=== PATIENT | female | born 1930 | race Caucasian/White ===

== ENCOUNTER 2017-03-12 07:47 | Observation (INO) | payer MEDICARE ==
[~2017-03-12] VITALS: Ht 157.5 cm; Wt 71.0 kg
[~2017-03-12 07:47] MED LIST: FLUO20TA20 PO; FURO20TA PO; GABA300C3 PO; LEVO50TA4 PO; LORTA5 PO; MEVA40TA PO; OMEP20TA39 PO; REFR0.5D4 EACH EYE; TEMA30CA PO; VITA100018 PO
[2017-03-12 07:57] VITALS: BP 232/103; PULSE 84; RESP 20; TEMP 98.1; O2SAT 99
--- NOTE | 2017-03-12 08:11 | PD ---
HPI Chief Complaint: Abdominal Pain Time Seen by Provider: 08:11 Travel History International Travel<30 days: No Contact w/Intl Traveler<30days: No Traveled to known affect area: No History of Present Illness HPI 86-year-old female came to the emergency room brought by EMS for abdominal pain and diarrhea. Patient says this has been going on for past 3 days. The stool is mostly watery. But currently her main complaint is abdominal pain and she seemed very uncomfortable. She pointed to her entire abdomen when asked for the location of the pain. Ideation and no aggravating or relieving factors currently. Patient was hypertensive upon arrival. No history of vomiting. She said she has been nauseous though. Patient has history of peptic ulcer disease and intestinal polyps. She received blood transfusion couple years ago. [facility] Past Medical History Narrative Medical List of her past medical, surgical, social and family history is reviewed from the nursing note. 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) Psychiatric: No Reproductive: No Respiratory: No Thyroid Disease: Yes (HYPO) Tetanus Vaccination: > 5 Years Menopausal: Yes Past Surgical History Abdominal Surgery: Yes (APPY) AICD: No Appendectomy: Yes Body Medical Devices: 4 SCREW & PLATE IN BACK Cardiac Surgery: No Ear Surgery: Yes (PARTIAL BILAT MASTOID BONES REMOVED) 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 Reported Meds & Prescriptions Reported Meds & Active Scripts Active Reported Refresh Tears (Carboxymethylcellulose Sodium) 0.5 % Fatoumata 1 Drop EACH EYE DAILY Levothyroxine 50 mcg (Levothyroxine Sodium) 50 Mcg Tab 50 Mcg PO DAILY Gabapentin 300 Mg Cap 400 Mg PO BID Hydrocodone/Acetaminophen 5 mg/325 mg 1 Tab 1 Tab PO TID PRN Temazepam 30 Mg Cap 30 Mg PO HS Vitamin D (Cholecalciferol) 1,000 Unit Tab 1,000 Unit PO DAILY Furosemide 20 Mg Tab 20 Mg PO DAILY PRN Fluoxetine Hcl (Fluoxetine HCl) 20 Mg Tab 20 Mg PO DAILY Lovastatin 40 Mg Tab 40 Mg PO DAILY Narrative Medication List of her home medications reviewed from the nursing note. Review of Systems Except as stated in HPI: all other systems reviewed are Neg Physical Exam Narrative GENERAL: Awake, alert, elderly, moderate distress SKIN: Focused skin assessment warm/dry. Pale, multiple large ecchymosis on her legs HEAD: Atraumatic. Normocephalic. EYES: Pupils equal and round. No scleral icterus. No injection or drainage. Pallor ENT: No nasal bleeding or discharge. Mucous membranes pink and moist. NECK: Trachea midline. No JVD. CARDIOVASCULAR: Regular rate and rhythm. No murmur appreciated. RESPIRATORY: No accessory muscle use. Clear to auscultation. Breath sounds equal bilaterally. GASTROINTESTINAL: Abdomen soft, non-tender, distended. Hepatic and splenic margins not palpable. MUSCULOSKELETAL: No obvious deformities. No clubbing. No cyanosis. No edema. NEUROLOGICAL: Awake and alert. No obvious cranial nerve deficits. Motor grossly within normal limits. Normal speech. PSYCHIATRIC: Appropriate mood and affect; insight and judgment normal. Data Data Last Documented VS Vital Signs Date Time Temp Pulse Resp B/P (MAP) Pulse Ox O2 Delivery O2 Flow Rate FiO2 03/12/17 08:54 99 Room Air 03/12/17 08:54 87 20 03/12/17 07:57 98.1 Orders Orders Complete Blood Count With Diff (03/12/17 08:22) Comprehensive Metabolic Panel (03/12/17 08:22) Prothrombin Time / Inr (Pt) (03/12/17 08:22) Urinalysis - C+S If Indicated (03/12/17 08:22) Ct Abd/Pel W/O Iv Contrast (03/12/17 08:22) Iv Access Insert/Monitor (03/12/17 08:22) Ecg Monitoring (03/12/17 08:22) Oximetry (03/12/17 08:22) Morphine Inj (Morphine Inj) (03/12/17 08:30) Ondansetron Inj (Zofran Inj) (03/12/17 08:30) Sodium Chlor 0.9% 1000 Ml Inj (Ns 1000 M (03/12/17 08:22) Sodium Chloride 0.9% Flush (Ns Flush) (03/12/17 08:30) Type And Screen (03/12/17 09:43) Sodium Chloride 0.9... W/Pantoprazole In (03/12/17 10:43) Sodium Chloride 0.9... W/Pantoprazole In (03/12/17 10:43) Admit Order (Ed Use Only) (03/12/17 10:17) Labs Laboratory Tests Test 03/12/17 08:55 03/12/17 09:30 White Blood Count 7.9 TH/MM3 Red Blood Count 3.08 MIL/MM3 Hemoglobin 8.0 GM/DL Hematocrit 24.7 % Mean Corpuscular Volume 80.2 FL Mean Corpuscular Hemoglobin 25.9 PG Mean Corpuscular Hemoglobin Concent 32.3 % Red Cell Distribution Width 19.0 % Platelet Count 222 TH/MM3 Mean Platelet Volume 8.3 FL Neutrophils (%) (Auto) 71.0 % Lymphocytes (%) (Auto) 20.7 % Monocytes (%) (Auto) 6.4 % Eosinophils (%) (Auto) 0.8 % Basophils (%) (Auto) 1.1 % Neutrophils # (Auto) 5.6 TH/MM3 Lymphocytes # (Auto) 1.6 TH/MM3 Monocytes # (Auto) 0.5 TH/MM3 Eosinophils # (Auto) 0.1 TH/MM3 Basophils # (Auto) 0.1 TH/MM3 CBC Comment AUTO DIFF Differential Comment AUTO DIFF CONFIRMED Platelet Estimate NORMAL Platelet Morphology Comment NORMAL Ovalocytes 1+ Prothrombin Time 10.6 SEC Prothromb Time International Ratio 1.0 RATIO Blood Urea Nitrogen 14 MG/DL Creatinine 0.66 MG/DL Random Glucose 103 MG/DL Total Protein 6.5 GM/DL Albumin 3.4 GM/DL Calcium Level 8.7 MG/DL Alkaline Phosphatase 67 U/L Aspartate Amino Transf (AST/SGOT) 27 U/L Alanine Aminotransferase (ALT/SGPT) 23 U/L Total Bilirubin 0.5 MG/DL Sodium Level 131 MEQ/L Potassium Level 4.2 MEQ/L Chloride Level 99 MEQ/L Carbon Dioxide Level 23.1 MEQ/L Anion Gap 9 MEQ/L Estimat Glomerular Filtration Rate 85 ML/MIN Urine Color LIGHT-YELLOW Urine Turbidity CLEAR Urine pH 8.0 Urine Specific [place] 1.012 Urine Protein NEG mg/dL Urine Glucose (UA) NEG mg/dL Urine Ketones 10 mg/dL Urine Occult Blood NEG Urine Nitrite NEG Urine Bilirubin NEG Urine Urobilinogen LESS THAN 2.0 MG/DL Urine Leukocyte Esterase NEG Urine RBC 1 /hpf Urine WBC 1 /hpf Urine Squamous Epithelial Cells <1 /hpf Microscopic Urinalysis Comment CULT NOT INDICATED MDM Medical Decision Making Medical Screen Exam Complete: Yes Emergency Medical Condition: Yes Medical Record Reviewed: Yes Interpretation(s) Twelve-lead EKG was reviewed by me. Normal sinus rhythm, left axis deviation, nonspecific ST-T wave changes. Heart rate of 79 bpm. Differential Diagnosis Acute diverticulitis, acute gastroenteritis, acute colitis, electrolyte abnormality, dehydration Narrative Course 9:47 AM blood test results are back. Patient is anemic and slightly hyponatremic. I did a stool Hemoccult which was positive. Patient is being started on Protonix bolus and drip. Hemoglobin was not low enough for transfusion but I would like to admit her for GI consultation and monitoring for the hemoglobin. Patient is okay with that plan. CT scan was negative for anything acute. Critical Care Narrative Aggregate critical care time was 30 minutes. Time to perform other separately billable procedures was not included in the critical care time. My time did not include minutes spent treating any other patients simultaneously or on activities that did not directly contribute to the patient's treatment. The services I provided to this patient were to treat and/or prevent clinically significant deterioration that could result in: GI bleed, Protonix bolus and drip I provided critical care services requiring my management, as noted below: Chart data review, documentation time, medication orders and management, vital sign assessments/reviewing monitor data, ordering and reviewing lab tests, ordering and interpreting/reviewing x-rays and diagnostic studies, care of the patient and discussion of the patient with the admitting physicians. Procedures EKG Prior to Arrival: No HemaPrompt Point of Care Internal Pos. & Neg. Controls: Passed Fecal Specimen Occult Blood: Positive Diagnosis Primary Impression: Abdominal pain Qualified Codes: R10.9 - Unspecified abdominal pain Additional Impressions: GI bleed Qualified Codes: K92.2 - Gastrointestinal hemorrhage, unspecified Diarrhea Qualified Codes: R19.7 - Diarrhea, unspecified Admitting Information Admitting Physician Requests: Admit Scripts Omeprazole Magnesium (Prilosec) 20 Mg Tab 20 MG PO BID for gastritis for 60 Days, #2400 MG 0 Refills Prov: Enrrique Erwin DO 03/15/17 Ferrous Sulfate (Ferosul) 325 Mg (65 Mg Iron) Tablet 325 MG PO BID for anemia for 30 Days, MG Prov: Enrrique Erwin DO 03/15/17 Mauricio Castro MD Mar 12, 2017 08:11
[2017-03-12] MEDS ORDERED: SODIUM CHLOR 0.9% 1000 ML INJ 1,000 ML IV SCH (08:22)
[2017-03-12] MEDS ORDERED: MORPHINE SULFATE 4 MG/ML INJ IV PUSH ONE (08:30)
[2017-03-12] MEDS ORDERED: SODIUM CHLORIDE 0.9% FLUSH 10 ML FLUSH IV FLUSH PRN (08:30)
[2017-03-12] MEDS ORDERED: ONDANSETRON HCL 4 MG/2 ML VIAL IVP ONE (08:30)
[2017-03-12 08:54] VITALS: BP 177/132; PULSE 87; RESP 20; O2SAT 100; O2SAT 99
[2017-03-12 09:06] LABS: AUTOMATED NEUTROPHIL # 5.6 TH/MM3 (1.8-7.7); BASOPHIL # 0.1 TH/MM3 (0-0.2); BASOPHIL % 1.1 % (0.0-2.0); EOSINOPHIL # 0.1 TH/MM3 (0-0.4); EOSINOPHIL % 0.8 % (0.0-4.0); HEMATOCRIT 24.7 % (35.0-46.0); LYMPH % 20.7 % (9.0-44.0); LYMPHOCYTE # 1.6 TH/MM3 (1.0-4.8); MEAN CELL VOLUME 80.2 FL (80.0-100.0); MEAN CORPUSCULAR HEMOGLOBIN 25.9 PG (27.0-34.0); MEAN CORPUSCULAR HGB CONC 32.3 % (32.0-36.0); MONO % 6.4 % (0.0-8.0); PLATELET COUNT 222 TH/MM3 (150-450); RED BLOOD COUNT 3.08 MIL/MM3 (4.00-5.30); WHITE BLOOD COUNT 7.9 TH/MM3 (4.0-11.0)
--- NOTE | 2017-03-12 09:09 | RADRPT ---
EXAM DATE/TIME: 03/12/2017 08:40 [place] COMPARISON: No previous studies available for comparison. INDICATIONS : Lower abdomen pain and diarrhea for 5 days ORAL CONTRAST: No oral contrast ingested. RADIATION DOSE: 12.69 CTDIvol (mGy) MEDICAL HISTORY : None SURGICAL HISTORY : Appendectomy. Hysterectomy. ENCOUNTER: Initial ACUITY: 1 day PAIN SCALE: 3/10 LOCATION: lower quadrant TECHNIQUE: Volumetric scanning of the abdomen and pelvis was performed. Using automated exposure control and ad justment of the mA and/or kV according to patient size, radiation dose was kept as low as reasonably achievable to obtain optimal diagnostic quality images. DICOM format image data is available electro nically for review and comparison. FINDINGS: LOWER LUNGS: Minimal by basilar atelectasis LIVER: Homogeneous density without lesion. There is no dilation of the biliary tree. No calcified gallston es. SPLEEN: Normal size without lesion. PANCREAS: Within normal limits. KIDNEYS: Symmetrical in size without evidence for radiopaque renal calculi or hydronephrosis. No significant c ontour deforming abnormality. ADRENAL GLANDS: Within normal limits. VASCULAR: Moderate atherosclerotic calcifications of the infrarenal abdominal aorta and proximal common iliac a rteries. No significant aneurysm. BOWEL/MESENTERY: Moderate hiatal hernia. Bowel appears grossly unremarkable without evidence for significant bowel wal l thickening or obstruction. No pneumatosis or free air. No drainable fluid collection or free fluid. ABDOMINAL WALL: Within normal limits. RETROPERITONEUM: There is no lymphadenopathy. BLADDER: No wall thickening or mass. REPRODUCTIVE: Within normal limits. INGUINAL: There is no lymphadenopathy or hernia. MUSCULOSKELETAL: Postsurgical features of beto and screw fixation at L4-5. No abnormal lytic or blastic bony lesions. CONCLUSION: 1. No acute findings to explain patient's symptoms. Specifically, no evidence for bowel obstruction o r gross bowel wall thickening. 2. Ancillary findings include moderate hiatal hernia and postsurgical features in the lower lumbar sp ine. Yan Flores MD on March 12, 2017 at 9:00 Board Certified Radiologist. This report was verified electronically.
[2017-03-12 09:10] LABS: HEMO FLAGS AUTO DIFF
[2017-03-12 09:16] LABS: PROTHROMBIN TIME - PATIENT 10.6 SEC (9.8-11.6)
[2017-03-12 09:27] LABS: ALT (GPT) 23 U/L (10-53); ANION GAP 9 MEQ/L (5-15); AST (GOT) 27 U/L (15-37); BICARBONATE 23.1 MEQ/L (21.0-32.0); BLOOD UREA NITROGEN 14 MG/DL (7-18); CHLORIDE 99 MEQ/L (98-107); GLOMERULAR FILTRATION RATE 85 ML/MIN (>89); POTASSIUM 4.2 MEQ/L (3.5-5.1); SODIUM (NA) 131 MEQ/L (136-145)
[2017-03-12 09:30] LABS: ALKALINE PHOSPHATASE 67 U/L (45-117); TOTAL BILIRUBIN ADULT 0.5 MG/DL (0.2-1.0)
[2017-03-12 09:51] LABS: BLOOD, URINE NEG (NEG); COMMENT (UR) CULT NOT INDICATED; CULTURE IF INDICATED CULT NOT INDICATED; GLUCOSE,URINE NEG (NEG); KETONE, URINE 10 mg/dL (NEG); NITRITE,URINE NEG (NEG); SQUAMOUS EPITHELIAL CELL URINE <1 /hpf (0-5); URINE COLOR LIGHT-YELLOW (YELLW/STRAW)
[2017-03-12 09:54] LABS: OVALOCYTES 1+ (NORMAL); PLATELET ESTIMATE SMEAR NORMAL (NORMAL); PLATELET MORPHOLOGY NORMAL (NORMAL); SCAN/DIFF AUTO DIFF CONFIRMED
[2017-03-12] MEDS ORDERED: PANTOPRAZOLE INJ 80 MG in SODIUM CHLORIDE 0.9% INJ 35 ML IV ONE (10:43)
[2017-03-12] MEDS: PANTOPRAZOLE INJ 80 MG in SODIUM CHLORIDE 0.9% INJ 100 ML IV SCH ×2 (10:43→22:26)
[2017-03-12] MEDS ORDERED: ACETAMINOPHEN 325 MG TAB PO PRN (11:00)
[2017-03-12] MEDS ORDERED: ONDANSETRON HCL 4 MG/2 ML VIAL IV PRN (11:00)
[2017-03-12] MEDS ORDERED: diphenhydrAMINE HCL 25 MG CAP PO ONE (11:15)
[2017-03-12] MEDS ORDERED: diphenhydrAMINE HCL 25 MG CAP PO PRN (11:15)
[2017-03-12] MEDS: SODIUM CHLOR 0.9% 1000 ML INJ 1,000 ML IV SCH ×2 (11:15→22:26)
[2017-03-12] MEDS ORDERED: ACETAMINOPHEN/HYDROcodone 325 MG/5 MG TAB PO PRN (11:15)
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
[2017-03-12] MEDS ORDERED: cloNIDine HCL 0.1 MG TAB PO PRN (12:00)
[2017-03-12 13:23] VITALS: BP 178/78; PULSE 82
[2017-03-12] MEDS ORDERED: PROPOFOL 200 MG/20 ML AMP IV ONE (14:20)
--- NOTE | 2017-03-12 15:25 | PD.CONS ---
HPI History of Present Illness This is a 86 year old female with hx MARILU, PUD, GERD who presented with complaint of diarrhea, onset 3 d ago. She took an immodium for it yesterday and began experiencing nausea and umblical pain. At this time she denies diarrhea, none since yesterday, and denies pain. She did take abx for cellulitis and finished that course 2 weeks ago. Denies recent travel, change in diet, change in meds, sick contacts, black tarry stool, weight loss, fevers. She cannot say if she has had blood in her stool b/c the power had been out, but prior she did not notice blood and denies hx GIB. Shewas found to be anemic with hgb 8.0 and heme pos stool on admission. She does take Aleve 3 per day 3 times per week. She had egd and colonoscopy with Chelsy 11/2014 and findings were esophageal stricture, esophagitis, hiatal hernia, duodenal ulcers , diverticulosis, hemorrhoids. Takes omeprazole for reflux. No bloodthinners (Tamika Omer) PFSH Past Medical History HLD GERD ulcers duodenum Past Surgical History cervical fusion back surgery x 3 appendectomy T&A hysterectomy (Tamika Omer) Coded Allergies: epinephrine (Unverified Adverse Reaction, Intermediate, 03/12/17) Family History none Social History occasional ETOH, no tobacco or illicit drug use (Tamika Omer) Review of Systems Constitutional: DENIES: Fever Eyes: DENIES: Blurred vision Ears, nose, mouth, throat: DENIES: Hearing loss Respiratory: DENIES: Wheezing Cardiovascular: DENIES: Chest pain Gastrointestinal: COMPLAINS OF: Abdominal pain, Diarrhea, DENIES: Black stools , Bloody stools, Constipation, Nausea, Vomiting, Hematemesis Genitourinary: DENIES: Hematuria Musculoskeletal: DENIES: Joint Swelling Integumentary: DENIES: Rash Neurologic: DENIES: Abnormal gait Psychiatric: DENIES: Confusion (Tamika Omer) GI Exam Vitals I&O Vital Signs Date Time Temp Pulse Resp B/P (MAP) Pulse Ox O2 Delivery O2 Flow Rate FiO2 03/12/17 13:23 82 178/78 (111) 03/12/17 08:54 99 Room Air 03/12/17 08:54 87 20 177/132 (147) 100 Room Air 03/12/17 07:57 98.1 84 20 232/103 (146) 99 I/O 03/11/17 03/11/17 03/11/17 03/12/17 03/12/17 03/12/17 07:00 15:00 23:00 07:00 15:00 23:00 Intake Total 1035 ml Balance 1035 ml Intake IV Total 1035 ml Laboratory Test 03/12/17 08:55 03/12/17 09:30 White Blood Count 7.9 TH/MM3 Red Blood Count 3.08 MIL/MM3 Hemoglobin 8.0 GM/DL Hematocrit 24.7 % Mean Corpuscular Volume 80.2 FL Mean Corpuscular Hemoglobin 25.9 PG Mean Corpuscular Hemoglobin Concent 32.3 % Red Cell Distribution Width 19.0 % Platelet Count 222 TH/MM3 Mean Platelet Volume 8.3 FL Neutrophils (%) (Auto) 71.0 % Lymphocytes (%) (Auto) 20.7 % Monocytes (%) (Auto) 6.4 % Eosinophils (%) (Auto) 0.8 % Basophils (%) (Auto) 1.1 % Neutrophils # (Auto) 5.6 TH/MM3 Lymphocytes # (Auto) 1.6 TH/MM3 Monocytes # (Auto) 0.5 TH/MM3 Eosinophils # (Auto) 0.1 TH/MM3 Basophils # (Auto) 0.1 TH/MM3 CBC Comment AUTO DIFF Differential Comment AUTO DIFF CONFIRMED Platelet Estimate NORMAL Platelet Morphology Comment NORMAL Ovalocytes 1+ Prothrombin Time 10.6 SEC Prothromb Time International Ratio 1.0 RATIO Blood Urea Nitrogen 14 MG/DL Creatinine 0.66 MG/DL Random Glucose 103 MG/DL Total Protein 6.5 GM/DL Albumin 3.4 GM/DL Calcium Level 8.7 MG/DL Alkaline Phosphatase 67 U/L Aspartate Amino Transf (AST/SGOT) 27 U/L Alanine Aminotransferase (ALT/SGPT) 23 U/L Total Bilirubin 0.5 MG/DL Sodium Level 131 MEQ/L Potassium Level 4.2 MEQ/L Chloride Level 99 MEQ/L Carbon Dioxide Level 23.1 MEQ/L Anion Gap 9 MEQ/L Estimat Glomerular Filtration Rate 85 ML/MIN Urine Color LIGHT-YELLOW Urine Turbidity CLEAR Urine pH 8.0 Urine Specific [place] 1.012 Urine Protein NEG mg/dL Urine Glucose (UA) NEG mg/dL Urine Ketones 10 mg/dL Urine Occult Blood NEG Urine Nitrite NEG Urine Bilirubin NEG Urine Urobilinogen LESS THAN 2.0 MG/DL Urine Leukocyte Esterase NEG Urine RBC 1 /hpf Urine WBC 1 /hpf Urine Squamous Epithelial Cells <1 /hpf Microscopic Urinalysis Comment CULT NOT INDICATED Physical Examination HEENT: PERRL; normocephalic; atraumatic; no jaundice. CHEST: CTA CARDIAC: RRR ABDOMEN: Soft, nondistended, LLQ TTP; no hepatosplenomegaly; bowel sounds are present in all four quadrants. EXTREMITIES: No clubbing, cyanosis, or edema. SKIN: Normal; no rash; no jaundice. RESP THER: No focal deficits; alert and oriented times three. (Tamika Omer) Assessment and Plan Plan ASSESSMENT - anemia w/ heme pos stool - 8.0 on admission, microcytic. hx MARILU. EGD/colon with findings esophagitis, duodenal ulcers, hemorrhoids. fairly frequent NSAID use - diarrhea, abd pain - onset 3 d ago, improving. No stool today. PLAN - EGD/colonoscopy tomorrow - monitor HH - transfuse as needed - clears today - obtain consent - NPO after midnight - Mg Citrate prep - further recs to follow This pt seen by myself and Dr Gavin and this note is written on her behalf (Tamika Omer) Physician Comments agree with above (Cherrie Gavin MD) Tamika Omer Mar 12, 2017 15:25 Cherrie Gavin MD Mar 14, 2017 06:09
[2017-03-12 15:30] VITALS: BP 156/68; PULSE 84; RESP 16; TEMP 96.5; O2SAT 95
[2017-03-12] MEDS ORDERED: MAGNESIUM CITRATE SOLN 300 ML BTL PO ONE ×2 (15:30)
[2017-03-12] MEDS: metroNIDAZOLE 500 MG TAB PO SCH ×2 (15:40→22:25)
[2017-03-12 20:10] VITALS: BP 149/76; PULSE 84; RESP 17; TEMP 98.5; O2SAT 96
[2017-03-12] MEDS: TEMAZEPAM 15 MG CAP PO SCH (22:25)
[2017-03-12] MEDS: GABAPENTIN 400 MG CAP PO SCH (22:25)
[2017-03-13] VITALS (8 sets, daily range): BP systolic 129–178; BP diastolic 63–79; PULSE 76–101; RESP 17–18; TEMP 96.2–98.1; O2SAT 94–100
[2017-03-13] MEDS: metroNIDAZOLE 500 MG TAB PO SCH ×3 (04:57→21:32)
[2017-03-13] MEDS: PANTOPRAZOLE INJ 80 MG in SODIUM CHLORIDE 0.9% INJ 100 ML IV SCH (04:58)
[2017-03-13] MEDS: SODIUM CHLOR 0.9% 1000 ML INJ 1,000 ML IV SCH (07:15)
--- NOTE | 2017-03-13 10:22 | HHI.PR ---
Subjective Remarks Continued diarrhea. Pt took bowel prep for panendoscopy. Pt denies abdominal pain. Objective Vitals Vital Signs Date Time Temp Pulse Resp B/P (MAP) Pulse Ox O2 Delivery O2 Flow Rate FiO2 03/13/17 08:00 96.4 77 17 146/65 (92) 94 03/13/17 04:35 96.3 84 17 139/63 (88) 98 03/13/17 00:35 98.1 90 17 133/63 (86) 98 03/12/17 20:10 98.5 84 17 149/76 (100) 96 03/12/17 15:30 96.5 84 16 156/68 (97) 95 03/12/17 13:23 82 178/78 (111) Result Diagram: 03/12/1785403/12/17854 Imaging Last Impressions Abdomen/Pelvis CT 03/12/17 08 Signed Impressions: Service Date/Time: Sunday, March 12, 2017 08:40 - CONCLUSION: 1. No acute findings to explain patient's symptoms. Specifically, no evidence for bowel obstruction or gross bowel wall thickening. 2. Ancillary findings include moderate hiatal hernia and postsurgical features in the lower lumbar spine. Yan Flores MD Objective Remarks GENERAL: This is a well-nourished, well-developed patient, in no apparent distress. CARDIOVASCULAR: Regular rate and rhythm without murmurs, gallops, or rubs. RESPIRATORY: Clear to auscultation. Breath sounds equal bilaterally. No wheezes , rales, or rhonchi. GASTROINTESTINAL: Abdomen soft, non-tender, nondistended. Normal active bowel sounds MUSCULOSKELETAL: Extremities without clubbing, cyanosis, or edema. NEURO: Alert & Oriented x4 to person, place, time, situation. Moves all ext x4 A/P Problem List: (1) Abdominal pain ICD Codes: R10.9 - Unspecified abdominal pain Status: Acute Plan: - comgmt with GI - Pt is an 86 y/o female with iron deficiency anemia, GERD/hx of PUD, hypertension, hyperlipidemia, and hypothyroidism. - Pt presented to the ED at [facility] on 03/12/17 with complaints of abdominal pain, nausea and diarrhea which began around 3 days prior to admission with generalized abdominal pain and nausea. She has not been eating much due to the nausea. The diarrhea began about 2 days prior to admission and has been watery diarrhea. - Pt reports that she was recently treated for a LE cellulitis with an antibiotic, she is unclear of which one she was on and I am unable to access outpt [facility] records at this time, which she completed these antibiotics around 10 days ago. - Labs in the ED noted a Hgb 8.0/Hct 24.7 and she was found to be Hemoccult positive on MONIKA in the ED. - CT Abd/pelvis (03/12) --> no acute findings to explain patient's symptoms, specifically, no evidence for bowel obstruction or gross bowel wall thickening. Ancillary findings include moderate hiatal hernia and postsurgical features in the lower lumbar spine. - Pt denies any fevers or chills. WBC count 7.9 at admission. - Check stool for C. diff given pts recent antibiotic exposure, sample NOT yet sent to lab - Started Flagyl 500mg Q8H prophylactically, 03/12/17 - Pain control PRN - Pt took Imodium evening prior to admission , monitor clinical status and stool output. Avoid giving any Imodium until infectious diarrhea is ruled out. - IVF, monitor for any signs of volume overload - Pt has been started on Protonix gtt given her hx of PUD/anemia/Hemoccult positive stool - await results of panendoscopy today - Supportive care - DVT prophylaxis with SCDs (2) Diarrhea ICD Codes: R19.7 - Diarrhea, unspecified Status: Acute Plan: - See above. (3) Anemia ICD Codes: D64.9 - Anemia, unspecified Status: Chronic Plan: - See above. - Pt was hospitalized in 2014 with anemia and GIB and underwent evaluation with EGD/colonoscopy (12/13/14) with Dr. Oliver which revealed benign esophageal stricture, large hiatal hernia, erosive esophagitis , duodenal ulcers, diverticulosis, and hemorrhoids. - Pt has continued to take Omeprazole 20mg po daily. - GI consulted (4) HTN (hypertension) ICD Codes: I10 - Essential (primary) hypertension Plan: - Pt is not on any antihypertensives at home - Elevation in BP initially may have been pain related - Clonidine PRN - Monitor BP closely (5) Hyperlipidemia ICD Codes: E78.5 - Hyperlipidemia, unspecified Status: Chronic Plan: - Home meds continued (6) Hypothyroidism ICD Codes: E03.9 - Hypothyroidism, unspecified Status: Chronic Plan: - Home meds continued Problem Qualifiers (1) Abdominal pain: Qualified Codes: R10.9 - Unspecified abdominal pain (2) Diarrhea: Qualified Codes: R19.7 - Diarrhea, unspecified (3) Anemia: (4) Hyperlipidemia: Qualified Codes: E78.5 - Hyperlipidemia, unspecified Enrrique Erwin DO Mar 13, 2017 10:22
--- NOTE | 2017-03-13 14:48 | GIPROC ---
[facility] [address] [facility]. [facility], [address] COLONOSCOPY PROCEDURE REPORT EXAM DATE: 03/13/2017 PATIENT NAME: Nenita Jean Baptiste MR #: [id number] BIRTHDATE: 1930 ENDOSCOPIST: Cherrie Gavin MD ORDER #: [id number] BENZENE WORKER: Deondre Garner and Mary Ann Kim STATUS: inpatient INDICATIONS: The patient is a 86 yr old female here for a colonoscopy due to diarrhea, anemia PROCEDURE PERFORMED: Colonoscopy with biopsy MEDICATIONS: None and Per Anesthesia. PREP QUALITY: good PREP TYPE:Other: ESTIMATED BLOOD LOSS: None CONSENT: The patient understands the risks and benefits of the procedure and understands that these risks include, but are not limited to: sedation, allergic reaction, infection, perforation and/or bleeding. Alternative means of evaluation and treatment include, among others: physical exam, x-rays, and/or surgical intervention. The patient elects to proceed with this endoscopic procedure. medical equipment was checked for proper function. Hand hygiene and appropriate measures for infection prevention was taken. After the risks, benefits and alternatives of the procedure were thoroughly explained, Informed consent was verified, confirmed and timeout was successfully executed by the treatment team. A digital exam revealed hemorrhoids The Pentax EC-[id number] endoscope was introduced through the anus and advanced to the cecum, which was identified by both the appendix and ileocecal valve. The instrument was then slowly withdrawn as the colon was fully examined. COLON FINDINGS: Diverticulosis sigmoid, descending. Random biopsies from ascending and descending colon. Retroflexed views revealed internal hemorrhoids and Retroflexed views revealed small internal hemorrhoids The scope was then completely withdrawn from the patient and the procedure terminated. PROCEDURE WITHDRAWAL TIME:6minutes ADVERSE EVENTS: There were no complications. IMPRESSIONS: 1. Diverticulosis sigmoid, descending 2. Retroflexed views revealed internal hemorrhoids 3. Retroflexed views revealed small internal hemorrhoids 4. Revealed hemorrhoids RECOMMENDATIONS: 1. Await biopsy results. Biopsy results will not be ready for 7-10 days. If you don't hear from us in two weeks, call our office for results. 2. Probiotics from any [facility] or health food store RECALL: Colonoscopy, pending biopsy results Cherrie Gavin MD eSigned: Cherrie Gavin MD 03/13/2017 2:48 PM cc:
--- NOTE | 2017-03-13 14:50 | GIPROC ---
[facility] [address] [facility]. [facility], [address] EGD PROCEDURE REPORT EXAM DATE: 03/13/2017 PATIENT NAME: Nenita Jean Baptiste MR #: [id number] BIRTHDATE: 1930 ATTENDING: Cherrie Gavin MD ORDER #: [id number] MUSICAL INSTRUMENTS ASSEMBLER: Deondre Garner and Mary Ann Kim STATUS: inpatient INDICATIONS: The patient is a 86 yr old female here for an EGD due to anemia, nausea, vomiting, diatrrhea PROCEDURE PERFORMED: EGD w/ biopsy MEDICATIONS: None and Per Anesthesia. TOPICAL ANESTHETIC: none CONSENT: The patient understands the risks and benefits of the procedure and understands that these risks include, but are not limited to: sedation, allergic reaction, infection, perforation and/or bleeding. Alternative means of evaluation and treatment include, among others: physical exam, x-rays, and/or surgical intervention. The patient elects to proceed with this endoscopic procedure. medical equipment was checked for proper function. Hand hygiene and appropriate measures for infection prevention was taken. After the risks, benefits and alternatives of the procedure were thoroughly explained, Informed consent was verified, confirmed and timeout was successfully executed by the treatment team. The patient was anesthetized with topical anesthesia and the EC-[id number] (Pedi C) endoscope was introduced through the mouth and advanced to the second portion of the duodenum. Retroflexed views revealed a hiatal hernia The gastroscope was then slowly withdrawn and removed. Gastritis antrum-biopsy duodenitis second portion-biopsy esophagitis distal esophagus-biopsy. ADVERSE EVENTS: There were no complications. IMPRESSIONS: 1. Gastritis antrum-biopsy duodenitis second portion-biopsy esophagitis distal esophagus-biopsy 2. Retroflexed views revealed a hiatal hernia RECOMMENDATIONS: 1. Await biopsy results. Biopsy results will not be ready for 7-10 days. If you don't hear from us in two weeks, call our office for biopsy results. 2. Anti-reflux regimen 3. Continue PPI PATIENT CONDITION: stable DISPOSITION: Inpatient REPEAT EXAM: EGD pending biopsy results Cherrie Gavin MD eSigned: Cherrie Gavin MD 03/13/2017 2:50 PM cc:
[2017-03-13] MEDS: FLUoxetine HCL 20 MG CAP PO SCH (15:02)
[2017-03-13] MEDS: CHOLECALCIFEROL (VIT D3) 1000 UNIT TAB PO SCH (15:02)
[2017-03-13] MEDS: GABAPENTIN 400 MG CAP PO SCH ×2 (15:02→21:32)
[2017-03-13] MEDS: PRAVASTATIN SOD 80 MG TAB PO SCH (15:02)
[2017-03-13] MEDS: LEVOTHYROXINE SODIUM 50 MCG TAB PO SCH (15:03)
[2017-03-13] MEDS: ARTIFICIAL TEARS OPTH SOLN 15 ML BTL EACH EYE SCH (18:27)
[2017-03-13 18:53] LABS: AUTOMATED NEUTROPHIL # 6.5 TH/MM3 (1.8-7.7); BASOPHIL # 0.1 TH/MM3 (0-0.2); EOSINOPHIL # 0.1 TH/MM3 (0-0.4); EOSINOPHIL % 1.1 % (0.0-4.0); HEMO FLAGS DIFF FINAL; LYMPH % 11.4 % (9.0-44.0); LYMPHOCYTE # 0.9 TH/MM3 (1.0-4.8); MEAN CELL VOLUME 81.2 FL (80.0-100.0); MEAN CORPUSCULAR HEMOGLOBIN 26.1 PG (27.0-34.0); MEAN CORPUSCULAR HGB CONC 32.1 % (32.0-36.0); NEUT % 80.5 % (16.0-70.0); PLATELET COUNT 239 TH/MM3 (150-450); RED BLOOD COUNT 2.95 MIL/MM3 (4.00-5.30); RED CELL DISTRIBUTION WIDTH 19.6 % (11.6-17.2); WHITE BLOOD COUNT 8.1 TH/MM3 (4.0-11.0)
[2017-03-13 19:19] LABS: ALKALINE PHOSPHATASE 58 U/L (45-117); ALT (GPT) 20 U/L (10-53); ANION GAP 9 MEQ/L (5-15); AST (GOT) 24 U/L (15-37); BICARBONATE 25.6 MEQ/L (21.0-32.0); BLOOD UREA NITROGEN 10 MG/DL (7-18); CHLORIDE 103 MEQ/L (98-107); GLOMERULAR FILTRATION RATE 82 ML/MIN (>89); POTASSIUM 3.1 MEQ/L (3.5-5.1); SODIUM (NA) 138 MEQ/L (136-145); TOTAL BILIRUBIN ADULT 0.4 MG/DL (0.2-1.0)
[2017-03-13] MEDS: TEMAZEPAM 15 MG CAP PO SCH (21:32)
--- NOTE | 2017-03-13 22:05 | EKG ---
Date Performed: 03/12/2017 Time Performed: 08:10:50 PTAGE: 86 years EKG: Sinus rhythm BORDERLINE LEFT AXIS DEVIATION MINIMAL VOLTAGE CRITERIA FOR LVH, CONSIDER NORMAL VARIANT BORDERLINE ECG Compared to prior tracing no significant change DOCTOR: Saleem Rodriguez Interpretating Date/Time 03/13/2017 22:03:43
[2017-03-14] VITALS (8 sets, daily range): BP systolic 114–181; BP diastolic 57–95; PULSE 78–99; RESP 16–18; TEMP 96.2–98; O2SAT 95–98
[2017-03-14] MEDS: SODIUM CHLOR 0.9% 1000 ML INJ 1,000 ML IV SCH (03:22)
[2017-03-14] MEDS: PANTOPRAZOLE INJ 80 MG in SODIUM CHLORIDE 0.9% INJ 100 ML IV SCH ×2 (03:23→11:47)
[2017-03-14] MEDS: metroNIDAZOLE 500 MG TAB PO SCH (05:04)
[2017-03-14] MEDS: LEVOTHYROXINE SODIUM 50 MCG TAB PO SCH (08:04)
[2017-03-14] MEDS: PRAVASTATIN SOD 80 MG TAB PO SCH (08:04)
[2017-03-14] MEDS: GABAPENTIN 400 MG CAP PO SCH ×2 (08:04→20:24)
[2017-03-14] MEDS: FLUoxetine HCL 20 MG CAP PO SCH (08:04)
[2017-03-14] MEDS: ARTIFICIAL TEARS OPTH SOLN 15 ML BTL EACH EYE SCH (08:04)
[2017-03-14] MEDS: CHOLECALCIFEROL (VIT D3) 1000 UNIT TAB PO SCH (08:04)
--- NOTE | 2017-03-14 15:55 | HHI.PR ---
Subjective Remarks No new complaints. Objective Vitals Vital Signs Date Time Temp Pulse Resp B/P (MAP) Pulse Ox O2 Delivery O2 Flow Rate FiO2 03/14/17 12:45 98.0 91 18 136/63 (87) 98 03/14/17 08:00 96.6 78 18 138/95 (109) 95 03/14/17 04:00 97.1 78 16 120/57 (78) 95 03/14/17 00:00 96.7 98 18 122/57 (78) 96 03/13/17 20:00 97.9 101 18 129/70 (89) 100 03/13/17 18:08 148/78 (101) 03/13/17 16:00 96.2 90 17 178/79 (112) 98 03/14/17 03/14/17 03/15/17 15:00 23:00 07:00 Intake Total 480 ml Balance 480 ml Intake Oral 480 ml Result Diagram: 03/13/17 1755 03/13/17 175 Imaging Last Impressions Abdomen/Pelvis CT 03/12/17821 Signed Impressions: Service Date/Time: Sunday, March 12, 2017 08:40 - CONCLUSION: 1. No acute findings to explain patient's symptoms. Specifically, no evidence for bowel obstruction or gross bowel wall thickening. 2. Ancillary findings include moderate hiatal hernia and postsurgical features in the lower lumbar spine. Yan Flores MD Objective Remarks GENERAL: This is a well-nourished, well-developed patient, in no apparent distress. CARDIOVASCULAR: Regular rate and rhythm without murmurs, gallops, or rubs. RESPIRATORY: Clear to auscultation. Breath sounds equal bilaterally. No wheezes , rales, or rhonchi. GASTROINTESTINAL: Abdomen soft, non-tender, nondistended. Normal active bowel sounds MUSCULOSKELETAL: Extremities without clubbing, cyanosis, or edema. NEURO: Alert & Oriented x4 to person, place, time, situation. Moves all ext x4 A/P Problem List: (1) Abdominal pain ICD Codes: R10.9 - Unspecified abdominal pain Status: Acute Plan: - comgmt with GI - Pt is an 86 y/o female with iron deficiency anemia, GERD/hx of PUD, hypertension, hyperlipidemia, and hypothyroidism. - Pt presented to the ED at [facility] on 03/12/17 with complaints of abdominal pain, nausea and diarrhea which began around 3 days prior to admission with generalized abdominal pain and nausea. She has not been eating much due to the nausea. The diarrhea began about 2 days prior to admission and has been watery diarrhea. - Pt reports that she was recently treated for a LE cellulitis with an antibiotic, she is unclear of which one she was on and I am unable to access outpt [facility] records at this time, which she completed these antibiotics around 10 days ago. - Labs in the ED noted a Hgb 8.0/Hct 24.7 and she was found to be Hemoccult positive on MONIKA in the ED. - CT Abd/pelvis (03/12) --> no acute findings to explain patient's symptoms, specifically, no evidence for bowel obstruction or gross bowel wall thickening. Ancillary findings include moderate hiatal hernia and postsurgical features in the lower lumbar spine. - Pt denies any fevers or chills. WBC count 7.9 at admission. - Check stool for C. diff given pts recent antibiotic exposure, sample NOT yet sent to lab - Started Flagyl 500mg Q8H prophylactically, 03/12/17 - Pain control PRN - Pt took Imodium evening prior to admission , monitor clinical status and stool output. Avoid giving any Imodium until infectious diarrhea is ruled out. - IVF, monitor for any signs of volume overload - Pt has been started on Protonix gtt given her hx of PUD/anemia/Hemoccult positive stool - EGD (03/14/17) - esophagitis - duodenitis - gastritis - biopsies pending - Colonoscopy (03/14/17) with Dr. Gavin - diverticulosis - Supportive care - DVT prophylaxis with SCDs (2) Diarrhea ICD Codes: R19.7 - Diarrhea, unspecified Status: Acute Plan: - See above. (3) Anemia ICD Codes: D64.9 - Anemia, unspecified Status: Chronic Plan: - See above. - Pt was hospitalized in 2014 with anemia and GIB and underwent evaluation with EGD/colonoscopy (12/13/14) with Dr. Oliver which revealed benign esophageal stricture, large hiatal hernia, erosive esophagitis , duodenal ulcers, diverticulosis, and hemorrhoids. - continue PPI - endoscopy studies, see above - No bleeding identified on endoscopy to explain anemia - obtain iron indicies - consult hematology - transfuse 2 units PRBCs - GI consulted (4) HTN (hypertension) ICD Codes: I10 - Essential (primary) hypertension Plan: - Pt is not on any antihypertensives at home - Elevation in BP initially may have been pain related - Clonidine PRN - Monitor BP closely (5) Hyperlipidemia ICD Codes: E78.5 - Hyperlipidemia, unspecified Status: Chronic Plan: - Home meds continued (6) Hypothyroidism ICD Codes: E03.9 - Hypothyroidism, unspecified Status: Chronic Plan: - Home meds continued Problem Qualifiers (1) Abdominal pain: Qualified Codes: R10.9 - Unspecified abdominal pain (2) Diarrhea: Qualified Codes: R19.7 - Diarrhea, unspecified (3) Anemia: (4) Hyperlipidemia: Qualified Codes: E78.5 - Hyperlipidemia, unspecified Enrrique Erwin DO Mar 14, 2017 15:55
--- NOTE | 2017-03-14 16:12 | HHI.GIFU ---
Subjective Remarks Up in chair. No obvious active gi bleeding. Tolerating diet. No n/v/ abdominal pain. States she had a capsule endoscopy about at year ago- was not able to swallow the pill and therefore had to have it placed by anesthesia. (Lelo Dos Santos) Objective Vitals I&O Vital Signs Date Time Temp Pulse Resp B/P (MAP) Pulse Ox O2 Delivery O2 Flow Rate FiO2 03/14/17 12:45 98.0 91 18 136/63 (87) 98 03/14/17 08:00 96.6 78 18 138/95 (109) 95 03/14/17 04:00 97.1 78 16 120/57 (78) 95 03/14/17 00:00 96.7 98 18 122/57 (78) 96 03/13/17 20:00 97.9 101 18 129/70 (89) 100 03/13/17 18:08 148/78 (101) 03/13/17 16:00 96.2 90 17 178/79 (112) 98 I/O 03/13/17 03/13/17 03/13/17 03/14/17 03/14/17 03/14/17 07:00 15:00 23:00 07:00 15:00 23:00 Intake Total 480 ml 300 ml 360 ml 240 ml 480 ml Balance 480 ml 300 ml 360 ml 240 ml 480 ml Intake Oral 480 ml 360 ml 240 ml 480 ml Other 300 ml # Voids 1 5 2 # Bowel Movements 10 1 Laboratory Laboratory Tests Test 03/13/17 17:55 White Blood Count 8.1 Red Blood Count 2.95 Hemoglobin 7.7 Hematocrit 24.0 Mean Corpuscular Volume 81.2 Mean Corpuscular Hemoglobin 26.1 Mean Corpuscular Hemoglobin Concent 32.1 Red Cell Distribution Width 19.6 Platelet Count 239 Mean Platelet Volume 7.6 Neutrophils (%) (Auto) 80.5 Lymphocytes (%) (Auto) 11.4 Monocytes (%) (Auto) 6.0 Eosinophils (%) (Auto) 1.1 Basophils (%) (Auto) 1.0 Neutrophils # (Auto) 6.5 Lymphocytes # (Auto) 0.9 Monocytes # (Auto) 0.5 Eosinophils # (Auto) 0.1 Basophils # (Auto) 0.1 CBC Comment DIFF FINAL Differential Comment Blood Urea Nitrogen 10 Creatinine 0.68 Random Glucose 92 Total Protein 5.9 Albumin 3.1 Calcium Level 8.0 Alkaline Phosphatase 58 Aspartate Amino Transf (AST/SGOT) 24 Alanine Aminotransferase (ALT/SGPT) 20 Total Bilirubin 0.4 Sodium Level 138 Potassium Level 3.1 Chloride Level 103 Carbon Dioxide Level 25.6 Anion Gap 9 Estimat Glomerular Filtration Rate 82 Imaging Last Impressions Abdomen/Pelvis CT 03/12/17 0822 Signed Impressions: Service Date/Time: Sunday, March 12, 2017 08:40 - CONCLUSION: 1. No acute findings to explain patient's symptoms. Specifically, no evidence for bowel obstruction or gross bowel wall thickening. 2. Ancillary findings include moderate hiatal hernia and postsurgical features in the lower lumbar spine. Yan Flores MD Physical Exam HEENT: Normocephalic; atraumatic; no jaundice. CHEST: Resp. even/unlabored CARDIAC: RRR ABDOMEN: Soft obese, nondistended, nontender; no hepatosplenomegaly; bowel sounds are present in all four quadrants. SKIN: Normal; no rash; no jaundice. ACCOUNT MANAGER TRAINEE: No focal deficits; alert and oriented times three. (Lelo Dos Santos) Assessment and Plan Plan ASSESSMENT - Anemia with hemoccult positive stool. Hx of MARILU and was previously evaluated with EGD/Colonoscopy/Capsule endoscopy. EGD (03/13/17)---> 1. Gastritis antrum- biopsy, duodenitis second portion-biopsy, esophagitis distal esophagus-biopsy, 2. Retroflexed views revealed a hiatal hernia. 1. Diverticulosis sigmoid, descending, 2. Retroflexed views revealed internal hemorrhoids, 3. Retroflexed views revealed small internal hemorrhoids, 4. Revealed hemorrhoids. Pathology pending. Of note, capsule endoscopy (01/18/15)----> Capsule placed in sb by scope secondary to inability to swallow pill. Relatively short small bowel with quick transit with no bleeding seen. HH 7.7/24.0, PRBC ordered for today. Send iron studies prior to blood transfusion. - Diarrhea, abd pain. EGD/Colonoscopy as above. Resolved. PLAN - DUANE - Send Iron studies/ferritin/vitamin B12/Folate/LDH/Haptoglobin prior to blood transfusion - D/C Protonix Gtt - Protonix 40mg po daily - Monitor hh - Transfuse as necessary- getting 2 units PRBC today - Supportive care - Further recommendations to follow based on results of above - Pt seen and examined by Dr. Gavin and myself and this note is written on her behalf (Lelo Dos Santos) Physician Comments seen, examined agree with above hematology consult transfuse 2 units of prbc (Cherrie Gavin MD) Lelo Dos Santos Mar 14, 2017 16:12 Cherrie Gavin MD Mar 14, 2017 16:52
[2017-03-14] MEDS ORDERED: ACETAMINOPHEN 325 MG TAB PO PRN (17:00)
[2017-03-14] MEDS ORDERED: diphenhydrAMINE HCL 25 MG CAP PO PRN (17:00)
[2017-03-14] MEDS ORDERED: SODIUM CHLOR 0.9% 250 ML INJ 250 ML IV ONE (17:00)
[2017-03-14] MEDS ORDERED: FUROSEMIDE 20 MG/2 ML VIAL IV ONE (17:00)
[2017-03-14] MEDS: POTASSIUM CHLORIDE 20 MEQ CONTROLLED RELEASE TAB PO SCH ×2 (17:23→20:23)
[2017-03-14 19:51] LABS: HEMATOCRIT 25.3 % (35.0-46.0); MEAN CELL VOLUME 79.6 FL (80.0-100.0); MEAN CORPUSCULAR HEMOGLOBIN 25.2 PG (27.0-34.0); MEAN CORPUSCULAR HGB CONC 31.6 % (32.0-36.0); PLATELET COUNT 295 TH/MM3 (150-450); RED BLOOD COUNT 3.17 MIL/MM3 (4.00-5.30); RED CELL DISTRIBUTION WIDTH 19.5 % (11.6-17.2); REVIEW FLAG FINAL; WHITE BLOOD COUNT 9.2 TH/MM3 (4.0-11.0)
[2017-03-14 20:16] LABS: MAGNESIUM 2.3 MG/DL (1.5-2.5); POTASSIUM 3.6 MEQ/L (3.5-5.1)
[2017-03-14 21:36] LABS: RETIC % 4.3 % (0.4-3.0); REVIEW FLAG FINAL
[2017-03-14] MEDS: TEMAZEPAM 15 MG CAP PO SCH (21:47)
[2017-03-14] MEDS: FERROUS SULFATE 325 MG (65 MG ELEMENTAL IRON) TAB PO SCH (21:53)
[2017-03-15 04:00] VITALS: BP 128/61; PULSE 71; RESP 16; TEMP 96.9; O2SAT 99
[2017-03-15 08:00] VITALS: BP 137/63; PULSE 79; RESP 18; TEMP 98.7; O2SAT 98
[2017-03-15] MEDS: FERROUS SULFATE 325 MG (65 MG ELEMENTAL IRON) TAB PO SCH (08:54)
[2017-03-15] MEDS: GABAPENTIN 400 MG CAP PO SCH (08:55)
[2017-03-15] MEDS: LEVOTHYROXINE SODIUM 50 MCG TAB PO SCH (08:55)
[2017-03-15] MEDS: FLUoxetine HCL 20 MG CAP PO SCH (08:55)
[2017-03-15] MEDS: PRAVASTATIN SOD 80 MG TAB PO SCH (08:56)
[2017-03-15] MEDS: CHOLECALCIFEROL (VIT D3) 1000 UNIT TAB PO SCH (08:56)
[2017-03-15] MEDS ORDERED: PANTOPRAZOLE SOD 40 MG DELAYED RELEASE TAB PO SCH (09:00)
[2017-03-15] MEDS: ARTIFICIAL TEARS OPTH SOLN 15 ML BTL EACH EYE SCH (09:00)
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
[2017-03-15 12:00] VITALS: BP 154/66; PULSE 70; RESP 18; TEMP 97.9; O2SAT 97
--- NOTE | 2017-03-15 13:35 | HHI.PR ---
Subjective Remarks No new complaints. Pt denies abdominal pain. No n/v/d Pt is tolerating PO intake. Objective Vitals Vital Signs Date Time Temp Pulse Resp B/P (MAP) Pulse Ox O2 Delivery O2 Flow Rate FiO2 03/15/17 08:00 98.7 79 18 137/63 (87) 98 03/15/17 04:00 96.9 71 16 128/61 (83) 99 03/14/17 22:10 96.2 81 17 114/58 95 03/14/17 21:57 97.0 85 18 132/63 95 03/14/17 20:00 97.3 92 18 181/77 (111) 98 03/14/17 16:52 99 146/72 (96) Result Diagram: 03/14/17190603/14/171906 Imaging Last Impressions Abdomen/Pelvis CT 03/12/17821 Signed Impressions: Service Date/Time: Sunday, March 12, 2017 08:40 - CONCLUSION: 1. No acute findings to explain patient's symptoms. Specifically, no evidence for bowel obstruction or gross bowel wall thickening. 2. Ancillary findings include moderate hiatal hernia and postsurgical features in the lower lumbar spine. Yan Flores MD Objective Remarks GENERAL: This is a well-nourished, well-developed patient, in no apparent distress. CARDIOVASCULAR: Regular rate and rhythm without murmurs, gallops, or rubs. RESPIRATORY: Clear to auscultation. Breath sounds equal bilaterally. No wheezes , rales, or rhonchi. GASTROINTESTINAL: Abdomen soft, non-tender, nondistended. Normal active bowel sounds MUSCULOSKELETAL: Extremities without clubbing, cyanosis, or edema. NEURO: Alert & Oriented x4 to person, place, time, situation. Moves all ext x4 A/P Problem List: (1) Abdominal pain ICD Codes: R10.9 - Unspecified abdominal pain Status: Acute Plan: - comgmt with GI - Pt is an 86 y/o female with iron deficiency anemia, GERD/hx of PUD, hypertension, hyperlipidemia, and hypothyroidism. - Pt presented to the ED at [facility] on 03/12/17 with complaints of abdominal pain, nausea and diarrhea which began around 3 days prior to admission with generalized abdominal pain and nausea. She has not been eating much due to the nausea. The diarrhea began about 2 days prior to admission and has been watery diarrhea. - Pt reports that she was recently treated for a LE cellulitis with an antibiotic, she is unclear of which one she was on and I am unable to access outpt [facility] records at this time, which she completed these antibiotics around 10 days ago. - Labs in the ED noted a Hgb 8.0/Hct 24.7 and she was found to be Hemoccult positive on MONIKA in the ED. - CT Abd/pelvis (03/12) --> no acute findings to explain patient's symptoms, specifically, no evidence for bowel obstruction or gross bowel wall thickening. Ancillary findings include moderate hiatal hernia and postsurgical features in the lower lumbar spine. - Pt denies any fevers or chills. WBC count 7.9 at admission. - Check stool for C. diff given pts recent antibiotic exposure, sample NOT yet sent to lab - Started Flagyl 500mg Q8H prophylactically, 03/12/17 - Pain control PRN - Pt took Imodium evening prior to admission , monitor clinical status and stool output. Avoid giving any Imodium until infectious diarrhea is ruled out. - IVF, monitor for any signs of volume overload - Pt has been started on Protonix gtt given her hx of PUD/anemia/Hemoccult positive stool - EGD (03/14/17) - esophagitis - duodenitis - gastritis - biopsies pending - Colonoscopy (03/14/17) with Dr. Gavin - diverticulosis - f/u with GI outpt in 2 weeks (2) Diarrhea ICD Codes: R19.7 - Diarrhea, unspecified Status: Acute Plan: - See above. (3) Anemia ICD Codes: D64.9 - Anemia, unspecified Status: Chronic Plan: - Appreciate input from Hematology - See above. - Pt was hospitalized in 2014 with anemia and GIB and underwent evaluation with EGD/colonoscopy (12/13/14) with Dr. Oliver which revealed benign esophageal stricture, large hiatal hernia, erosive esophagitis , duodenal ulcers, diverticulosis, and hemorrhoids. - continue PO PPI - endoscopy studies, see above - No bleeding identified on endoscopy to explain anemia - absolute retic 134.7 - haptoglobin 196 - serum iron 23 - Pt transfused 1 unit PRBC, - If repeat Hg is stable, then will discharge to home this evening (4) HTN (hypertension) ICD Codes: I10 - Essential (primary) hypertension Plan: - Pt is not on any antihypertensives at home - Elevation in BP initially may have been pain related - Clonidine PRN - Monitor BP closely (5) Hyperlipidemia ICD Codes: E78.5 - Hyperlipidemia, unspecified Status: Chronic Plan: - Home meds continued (6) Hypothyroidism ICD Codes: E03.9 - Hypothyroidism, unspecified Status: Chronic Plan: - Home meds continued Problem Qualifiers (1) Abdominal pain: Qualified Codes: R10.9 - Unspecified abdominal pain (2) Diarrhea: Qualified Codes: R19.7 - Diarrhea, unspecified (3) Anemia: (4) Hyperlipidemia: Qualified Codes: E78.5 - Hyperlipidemia, unspecified Enrrique Erwin DO Mar 15, 2017 13:35
[2017-03-15] MEDS ORDERED: FERR325T20 PO (13:39)
[2017-03-15] MEDS ORDERED: PRIL20TA2 PO (13:39)
--- NOTE | 2017-03-15 14:08 | HHI.DCPOC ---
Discharge Care Plan Diagnosis: (1) MARILU (iron deficiency anemia) (2) Diarrhea (3) HTN (hypertension) (4) Hypothyroidism Goals to Promote Your Health * To prevent worsening of your condition and complications * To maintain your health at the optimal level Directions to Meet Your Goals Take your medications as prescribed Follow your dietary instruction Follow activity as directed Keep your appointments as scheduled Take your immunizations and boosters as scheduled If your symptoms worsen call your PCP, if no PCP go to Urgent Care Center or Emergency Room Smoking is Dangerous to Your Health. Avoid second hand smoke Call the 24-hour hour crisis hotline for domestic abuse at Enrrique Erwin DO Mar 15, 2017 14:08
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
[2017-03-15 14:38] LABS: HEMATOCRIT 27.7 % (35.0-46.0); MEAN CELL VOLUME 81.2 FL (80.0-100.0); MEAN CORPUSCULAR HEMOGLOBIN 25.2 PG (27.0-34.0); PLATELET COUNT 269 TH/MM3 (150-450); RED BLOOD COUNT 3.41 MIL/MM3 (4.00-5.30); RED CELL DISTRIBUTION WIDTH 19.7 % (11.6-17.2); REVIEW FLAG FINAL; WHITE BLOOD COUNT 8.5 TH/MM3 (4.0-11.0)
[2017-03-15 15:00] LABS: BICARBONATE 24.2 MEQ/L (21.0-32.0); POTASSIUM 4.3 MEQ/L (3.5-5.1)
== END 2017-03-15 15:47 | disposition home or self-care (01) ==
LOC: NEPE 07:47 → INTOOBSV 10:19 → NEDA 10:19 → HOCB 13:35
PROVIDERS: ADMIT Hospitalist; ATTEND Hospitalist
DX: D50.9 Iron deficiency anemia, unspecified (principal); R19.7 Diarrhea, unspecified; R10.9 Unspecified abdominal pain; K92.2 Gastrointestinal hemorrhage, unspecified; K29.70 Gastritis, unspecified, without bleeding; K57.90 Diverticulosis of intestine, part unspecified, without perforation or abscess without bleeding; K64.8 Other hemorrhoids; K44.9 Diaphragmatic hernia without obstruction or gangrene; I10 Essential (primary) hypertension; K21.9 Gastro-esophageal reflux disease without esophagitis; M10.9 Gout, unspecified; R32 Unspecified urinary incontinence; E78.00 Pure hypercholesterolemia, unspecified; E87.1 Hypo-osmolality and hyponatremia; E03.9 Hypothyroidism, unspecified; M54.9 Dorsalgia, unspecified; G89.29 Other chronic pain; R11.2 Nausea with vomiting, unspecified; E86.0 Dehydration; M17.0 Bilateral primary osteoarthritis of knee; M48.00 Spinal stenosis, site unspecified; M81.0 Age-related osteoporosis without current pathological fracture; Z87.891 Personal history of nicotine dependence; Z87.11 Personal history of peptic ulcer disease
CPT/HCPCS: 00740; 36430; 43239; 45380; 74176; 80048; 80053; 81001; 82607; 82728; 82746; 83010; 83540; 83615; 83735; 85025; 85027; 85044; 85610; 86850; 86900; 86901; 86920; 88305; 93005; 96361; 96365; 96366; 96374; 96375; 96376; 99291; C9113; G0378; J2270; J2405; J7030; P9016